=== PATIENT | female | born 1940 | race Caucasian/White ===

== ENCOUNTER 2019-01-17 13:12 | Emergency (ER) | payer OTHER, BC ==
[~2019-01-17] VITALS: Ht 170.2 cm; Wt 63.5 kg
[~2019-01-17 13:12] MED LIST: CORGARD20 M1
== END 2019-01-17 17:52 | disposition home or self-care (01) ==
LOC: ER 13:12
DX: T70.0XXA Otitic barotrauma, initial encounter (principal); X58.XXXA Exposure to other specified factors, initial encounter; Y93.89 Activity, other specified; Y92.89 Other specified places as the place of occurrence of the external cause; Y99.8 Other external cause status